=== PATIENT | female | born 1960 | race Two or more races ===

== ENCOUNTER 2024-02-20 01:31 | Inpatient (IN) | payer OTHER ==
[~2024-02-20] VITALS: Ht 167.6 cm; Wt 70.1 kg
[2024-02-20] MEDS: PANTOPRAZOLE 40 MG/10 ML VIAL INJ IV ONE (02:50)
[2024-02-20] MEDS: ONDANSETRON HCL 4 MG/2 ML VIAL IV ONE (02:50)
[2024-02-20 03:11] LABS: Basophils # (auto) 0.1 10 ^3/uL (0-0.2); Basophils % (auto) 0.9 % (0.0-2.0); Eosinophils # (auto) 0 10 ^3/uL (0-0.8); Eosinophils % (auto) 0.5 % (0.0-7.0); Hematocrit 27.7 % (36.0-46.0); Lymphocytes # (auto) 0.9 10 ^3/uL (0.4-5.4); Lymphocytes % (auto) 10.6 % (10.0-50.0); Mean Corpuscular Hemoglobin 19.3 pg (28.0-32.0); Mean Corpuscular Hgb Conc. 28.8 g/dL (32.0-36.0); Mean Corpuscular Volume 66.9 fL (80.0-100.0); Monocytes % (auto) 11.5 % (0.0-12.0); Neutrophils # (auto) 6.6 10 ^3/uL (1.6-8.6); Neutrophils % (auto) 76.5 % (37.0-80.0); Nucleated Red Blood Cells % 0.1 %; Red Blood Cells 4.14 10^6/uL (4.0-5.20); White Blood Cell 8.6 10^3/uL (4.4-10.8)
[2024-02-20 03:17] LABS: Red Cell Distribution Width 24.4 % (11.8-14.3)
[2024-02-20] MEDS: MAALOX PLUS or MAALOX 30 ML PO ONE (03:26)
[2024-02-20] MEDS: DONNATAL 5ml ORAL Elix (BELLADONNA ALK-PHENOBARB) PO ONE (03:26)
[2024-02-20] MEDS: LIDOCAINE VISCOUS 2% 15ML UD PO ONE (03:26)
[2024-02-20] MEDS: METOCLOPRAMIDE HCL 5MG/ml INJ 2ml VIAL IV ONE (03:26)
[2024-02-20 03:30] LABS: Chloride 107 mmol/L (98-107); Potassium 3.4 mmol/L (3.5-5.1); Sodium 143 mmol/L (136-145)
[2024-02-20 03:31] LABS: Anion Gap 21 (5-15); Calcium 7.9 mg/dL (8.5-10.1); Carbon Dioxide 15 mmol/L (20-30)
[2024-02-20 03:36] LABS: BUN/Creatinine Ratio 7.3 (10.0-20.0); Blood Urea Nitrogen 11 mg/dL (9-23); Glucose 91 mg/dL (74-106)
[2024-02-20] MEDS: SODIUM CHLORIDE 0.9% 1,000 ML IV ONE (04:08)
[2024-02-20 05:13] LABS: Hypochromia Marked; Platelet Estimate Adequate; Target Cell MODERATE
[2024-02-20] MEDS: LORazepam 2MG/ML-1ML VIAL ONE (06:28)
[2024-02-20] MEDS: LORazepam 2MG/ML-1ML VIAL IV ONE ×2 (06:34→10:30)
[2024-02-20] MEDS ORDERED: ONDANSETRON HCL 4 MG/2 ML VIAL IV PRN (10:15)
[2024-02-20] MEDS ORDERED: MORPHINE SULFATE INJ 2 MG/ml SYRG IV PRN (10:15)
[2024-02-20] MEDS ORDERED: ACETAMINOPHEN 325 MG TAB PO PRN (10:15)
[2024-02-20] MEDS ORDERED: NITROGLYCERIN 0.4 MG SL TAB SL PRN (10:15)
[2024-02-20] MEDS: ASPirin 81 mg TAB PO ONE (10:34)
[2024-02-20 15:12] LABS: Folate (Folic Acid) 8.71 ng/mL (>5.38)
[2024-02-20 19:35] VITALS: PULSE 78; RESP 15; O2SAT 94
[2024-02-20] MEDS: levETIRAcetam 500 mg/100ml 100 ML IV SCH (22:06)
[2024-02-20 22:27] VITALS: BP 163/83; PULSE 86; RESP 17; TEMP 98; O2SAT 98
[2024-02-20] MEDS ORDERED: SIMV20TA20 PO (22:57)
[2024-02-20] MEDS ORDERED: CYA100I IM (22:57)
[2024-02-20] MEDS ORDERED: QUET1TAB11 PO (22:57)
[2024-02-20] MEDS ORDERED: FLUO40CA PO (22:57)
[2024-02-20] MEDS ORDERED: PANT40TA2 PO (22:57)
[2024-02-20] MEDS ORDERED: TRIA75TA55 PO (22:57)
[2024-02-20] MEDS ORDERED: POTA8TAB38 PO (22:57)
[2024-02-20] MEDS ORDERED: ESCI5TAB PO (22:57)
[2024-02-20] MEDS ORDERED: BUPR300T28 PO (22:57)
[2024-02-20] MEDS ORDERED: ACET-1304 PO (22:57)
[2024-02-21] VITALS (8 sets, daily range): BP systolic 138–164; BP diastolic 70–89; PULSE 75–121; RESP 16–20; TEMP 98.1–99.9; O2SAT 95–100
[2024-02-21] MEDS ORDERED: LORazepam 2MG/ML-1ML VIAL IV PRN (00:45)
[2024-02-21] MEDS: ASPirin 81 mg TAB PO SCH (08:26)
[2024-02-21] MEDS: PANTOPRAZOLE 40 MG TAB PO SCH (08:26)
[2024-02-21 12:05] LABS: Chloride 100 mmol/L (98-107); Potassium 2.9 mmol/L (3.5-5.1); Sodium 137 mmol/L (136-145)
[2024-02-21 12:06] LABS: Anion Gap 12 (5-15); Calcium 7.6 mg/dL (8.5-10.1); Carbon Dioxide 25 mmol/L (20-30)
[2024-02-21 12:12] LABS: BUN/Creatinine Ratio 5.5 (10.0-20.0); Blood Urea Nitrogen 6 mg/dL (9-23)
[2024-02-21 12:18] LABS: Glucose 39 mg/dL (74-106)
[2024-02-21] MEDS: POTASSIUM CHL 20 Meq TABLET PO ONE (13:42)
[2024-02-21] MEDS: amLODIPine BESYLATE 5 MG TAB PO ONE (13:43)
[2024-02-21] MEDS: SODIUM CHLORIDE 0.9% 1,000 ML IV SCH (13:55)
[2024-02-21] MEDS ORDERED: SOD CHL 0.9%/ KCL 20MEQ 1,000 ML IV SCH (16:15)
[2024-02-21] MEDS: NICOTINE 7MG/24HR TOPICAL PATCH TD ONE (17:26)
[2024-02-21] MEDS: CITALOPRAM HYDROBR 20 MG TAB PO ONE (17:26)
[2024-02-21] MEDS: D5 IV SCH (18:45)
[2024-02-21] MEDS: POTASSIUM CHLORIDE IV SCH (18:45)
[2024-02-21] MEDS: SOD CHLO IV SCH (18:45)
[2024-02-21 19:02] LABS: Phosphorus 2.1 mg/dL (2.4-5.1)
[2024-02-21 19:21] LABS: Magnesium 0.5 mg/dL (1.6-2.6)
[2024-02-21 22:14] LABS: % Iron Saturation 9.5 % (15-50)
[2024-02-22] VITALS (8 sets, daily range): BP systolic 125–145; BP diastolic 68–78; PULSE 60–111; RESP 16–21; TEMP 97.9–99; O2SAT 95–100
[2024-02-22 07:03] LABS: Eosinophils # (auto) 0.1 10 ^3/uL (0-0.8); Nucleated Red Blood Cells % 0.1 %
[2024-02-22 07:14] LABS: Chloride 101 mmol/L (98-107); Potassium 3.1 mmol/L (3.5-5.1); Sodium 136 mmol/L (136-145)
[2024-02-22 07:15] LABS: Anion Gap 10 (5-15); Calcium 7.6 mg/dL (8.5-10.1); Carbon Dioxide 25 mmol/L (20-30)
[2024-02-22 07:20] LABS: BUN/Creatinine Ratio 8.3 (10.0-20.0); Blood Urea Nitrogen 13 mg/dL (9-23); Glucose 88 mg/dL (74-106)
[2024-02-22 07:22] LABS: Basophils # (auto) 0 10 ^3/uL (0-0.2); Basophils % (auto) 0.1 % (0.0-2.0); Eosinophils % (auto) 0.9 % (0.0-7.0); Hematocrit 23.1 % (36.0-46.0); Hemoglobin 7.1 g/dL (12.2-16.2); Lymphocytes # (auto) 0.3 10 ^3/uL (0.4-5.4); Lymphocytes % (auto) 4.3 % (10.0-50.0); Mean Corpuscular Hemoglobin 19.7 pg (28.0-32.0); Mean Corpuscular Hgb Conc. 30.6 g/dL (32.0-36.0); Mean Corpuscular Volume 64.3 fL (80.0-100.0); Monocytes # (auto) 1.1 10 ^3/uL (0-1.3); Monocytes % (auto) 13.8 % (0.0-12.0); Neutrophils # (auto) 6.4 10 ^3/uL (1.6-8.6); Neutrophils % (auto) 80.9 % (37.0-80.0); Red Blood Cells 3.59 10^6/uL (4.0-5.20); White Blood Cell 7.9 10^3/uL (4.4-10.8)
[2024-02-22 07:24] LABS: Red Cell Distribution Width 23.7 % (11.8-14.3)
[2024-02-22] MEDS: PATIENTS OWN MEDICATION (Bupropion Hcl (Bupropion Hcl Xl) 300 MG) PO SCH (08:58)
[2024-02-22] MEDS: amLODIPine BESYLATE 5 MG TAB PO SCH (08:59)
[2024-02-22] MEDS: QUEtiapine FUMARATE 25 MG TAB PO SCH (09:00)
[2024-02-22] MEDS: POTASSIUM CHL 20 Meq TABLET PO ONE (09:00)
[2024-02-22] MEDS: CITALOPRAM HYDROBR 20 MG TAB PO SCH (09:00)
[2024-02-22] MEDS: NICOTINE 7MG/24HR TOPICAL PATCH TD SCH (09:01)
[2024-02-22] MEDS ORDERED: PATIENTS OWN MEDICATION (Escitalopram Oxalate (Lexapro) 1 TAB) PO SCH (10:00)
[2024-02-22] MEDS: POTASSIUM PHOSPHATE 44 MEQ in D5W 5% 250 ML IV ONE (16:48)
[2024-02-22] MEDS: ERGOCALCIFEROL 50,000 UNIT(1.25MG) CAP PO SCH (16:53)
[2024-02-22] MEDS: MAGNESIUM SULFATE 1GM/100ML 100 ML IV SCH (16:56)
[2024-02-23] VITALS (12 sets, daily range): BP systolic 123–155; BP diastolic 58–88; PULSE 83–105; RESP 16–18; TEMP 97.4–99; O2SAT 95–100
[2024-02-23 00:35] LABS: Urine Bacteria FEW /hpf (None Seen); Urine Blood Negative /uL (Negative); Urine Clarity Clear (Clear); Urine Color Straw (Yellow); Urine Protein, UAD Negative (Negative); Urine Specific Gravity 1.004 (1.001-1.035); Urine Urobilinogen Normal (Negative); Urine WBC <1 /hpf (0 - 5); Urine pH 6.5 (5.0-9.0)
[2024-02-23 01:57] LABS: Protein, Urine 10.2 mg/dL (0.0-11.9)
[2024-02-23 02:00] LABS: Creatinine, Urine 23.83 mg/dL (30.0-125.0); Urine Protein/Creatinine Ratio 0.43
[2024-02-23 06:37] LABS: Hematocrit 22.2 % (36.0-46.0); Mean Corpuscular Hemoglobin 19.3 pg (28.0-32.0); Red Blood Cells 3.43 10^6/uL (4.0-5.20)
[2024-02-23 06:40] LABS: Mean Corpuscular Hgb Conc. 29.7 g/dL (32.0-36.0); Mean Corpuscular Volume 64.8 fL (80.0-100.0); White Blood Cell 5.9 10^3/uL (4.4-10.8)
[2024-02-23 06:41] LABS: Anion Gap 9 (5-15); Carbon Dioxide 22 mmol/L (20-30); Chloride 106 mmol/L (98-107); Potassium 3.9 mmol/L (3.5-5.1); Sodium 137 mmol/L (136-145)
[2024-02-23 06:42] LABS: Calcium 7.8 mg/dL (8.5-10.1)
[2024-02-23 06:47] LABS: BUN/Creatinine Ratio 9.2 (10.0-20.0); Blood Urea Nitrogen 11 mg/dL (9-23); Glucose 80 mg/dL (74-106); Magnesium 1.1 mg/dL (1.6-2.6)
[2024-02-23 06:49] LABS: Red Cell Distribution Width 24.1 % (11.8-14.3)
[2024-02-23 06:52] LABS: Hemoglobin 6.6 g/dL (12.2-16.2)
[2024-02-23 06:53] LABS: Band Neutrophils % (manual) 0; Basophils % (manual) 0 (0.0-2.0); Blast Cells 0; Metamyelocytes % 0; Myelocytes % 0; Promyelocytes % 0; Reactive Lymphocytes 0
[2024-02-23 08:07] LABS: Eosinophils % (manual) 1 (0-7); Hypochromia Marked; Lymphocytes % (manual) 11 (10.0-50.0); Monocytes % (manual) 13 (0-12); Platelet Estimate Adequate
[2024-02-23 08:08] LABS: Anisocytosis Slight
[2024-02-23 09:07] LABS: Hepatitis B Surface Antigen Negative (Negative)
[2024-02-23 09:28] LABS: Hepatitis C Antibody Negative (Negative)
[2024-02-23] MEDS: MAGNESIUM OXIDE 400 MG TAB PO SCH (11:12)
[2024-02-23] MEDS: MAGNESIUM SULFATE 1GM/100ML 100 ML IV SCH (11:18)
[2024-02-24] VITALS (8 sets, daily range): BP systolic 147–160; BP diastolic 68–91; PULSE 79–100; RESP 16–18; TEMP 97.1–98.5; O2SAT 96–100
[2024-02-24 07:02] LABS: Anion Gap 10 (5-15); Carbon Dioxide 23 mmol/L (20-30); Chloride 103 mmol/L (98-107); Potassium 3.8 mmol/L (3.5-5.1); Sodium 136 mmol/L (136-145)
[2024-02-24 07:03] LABS: Calcium 8.7 mg/dL (8.5-10.1)
[2024-02-24 07:04] LABS: Hemoglobin 8.5 g/dL (12.2-16.2); White Blood Cell 5.6 10^3/uL (4.4-10.8)
[2024-02-24 07:06] LABS: Hematocrit 27.6 % (36.0-46.0); Mean Corpuscular Hemoglobin 20.9 pg (28.0-32.0); Mean Corpuscular Hgb Conc. 30.7 g/dL (32.0-36.0); Mean Corpuscular Volume 67.8 fL (80.0-100.0); Red Blood Cells 4.07 10^6/uL (4.0-5.20)
[2024-02-24 07:07] LABS: Red Cell Distribution Width 26.9 % (11.8-14.3)
[2024-02-24 07:08] LABS: BUN/Creatinine Ratio 6.7 (10.0-20.0); Blood Urea Nitrogen 7 mg/dL (9-23); Glucose 73 mg/dL (74-106)
[2024-02-24 07:09] LABS: Band Neutrophils % (manual) 0; Basophils % (manual) 0 (0.0-2.0); Blast Cells 0; Magnesium 1.6 mg/dL (1.6-2.6); Metamyelocytes % 0; Myelocytes % 0; Promyelocytes % 0; Reactive Lymphocytes 0
[2024-02-24 07:33] LABS: Anisocytosis Slight; Eosinophils % (manual) 2 (0-7); Hypochromia Moderate; Lymphocytes % (manual) 11 (10.0-50.0); Monocytes % (manual) 15 (0-12); Platelet Estimate Adequate
[2024-02-25] VITALS (8 sets, daily range): BP systolic 125–170; BP diastolic 66–103; PULSE 70–102; RESP 16–20; TEMP 97.8–98.7; O2SAT 95–98
[2024-02-25 06:11] LABS: Chloride 105 mmol/L (98-107); Potassium 3.7 mmol/L (3.5-5.1); Sodium 136 mmol/L (136-145)
[2024-02-25 06:12] LABS: Anion Gap 9 (5-15); Carbon Dioxide 22 mmol/L (20-30)
[2024-02-25 06:13] LABS: Calcium 9.1 mg/dL (8.7-10.4)
[2024-02-25 06:17] LABS: Glucose 78 mg/dL (74-106)
[2024-02-25 06:18] LABS: Blood Urea Nitrogen 7 mg/dL (9-23); Magnesium 1.4 mg/dL (1.6-2.6)
[2024-02-25 06:40] LABS: Hemoglobin 8.5 g/dL (12.2-16.2)
[2024-02-25 06:45] LABS: Hematocrit 27.7 % (36.0-46.0); Mean Corpuscular Hgb Conc. 30.8 g/dL (32.0-36.0); Mean Corpuscular Volume 68.4 fL (80.0-100.0); Red Blood Cells 4.06 10^6/uL (4.0-5.20); White Blood Cell 4.7 10^3/uL (4.4-10.8)
[2024-02-25 06:54] LABS: Red Cell Distribution Width 26.8 % (11.8-14.3)
[2024-02-25 06:56] LABS: Band Neutrophils % (manual) 0; Basophils % (manual) 0 (0.0-2.0); Blast Cells 0; Metamyelocytes % 0; Myelocytes % 0; Promyelocytes % 0; Reactive Lymphocytes 0
[2024-02-25 08:47] LABS: Eosinophils % (manual) 2 (0-7); Lymphocytes % (manual) 17 (10.0-50.0); Monocytes % (manual) 8 (0-12)
[2024-02-25 08:48] LABS: Anisocytosis Slight; Hypochromia Moderate
[2024-02-25 08:49] LABS: Platelet Estimate Adequate
[2024-02-25] MEDS: METOPROLOL TARTRATE 25 MG TAB PO SCH (10:27)
[2024-02-25] MEDS ORDERED: MAGNESIUM SULFATE 1GM/100ML 100 ML IV SCH (13:00)
[2024-02-26] VITALS (8 sets, daily range): BP systolic 109–164; BP diastolic 54–86; PULSE 61–79; RESP 16–20; TEMP 98–98.6; O2SAT 96–98
[2024-02-26 06:24] LABS: Chloride 104 mmol/L (98-107); Sodium 136 mmol/L (136-145)
[2024-02-26 06:25] LABS: Anion Gap 9 (5-15); Carbon Dioxide 23 mmol/L (20-30)
[2024-02-26 06:30] LABS: Glucose 77 mg/dL (74-106)
[2024-02-26 06:31] LABS: BUN/Creatinine Ratio 8.5 (10.0-20.0); Blood Urea Nitrogen 10 mg/dL (9-23); Magnesium 1.3 mg/dL (1.6-2.6)
[2024-02-26 06:50] LABS: Eosinophils # (auto) 0.1 10 ^3/uL (0-0.8); Hemoglobin 8.7 g/dL (12.2-16.2); Mean Corpuscular Hgb Conc. 30.2 g/dL (32.0-36.0); Monocytes # (auto) 0.6 10 ^3/uL (0-1.3); Neutrophils # (auto) 2.1 10 ^3/uL (1.6-8.6); Nucleated Red Blood Cells % 0.1 %; Red Blood Cells 4.25 10^6/uL (4.0-5.20); White Blood Cell 5.8 10^3/uL (4.4-10.8)
[2024-02-26 06:52] LABS: Basophils # (auto) 0 10 ^3/uL (0-0.2); Basophils % (auto) 0.7 % (0.0-2.0); Eosinophils % (auto) 1.6 % (0.0-7.0); Hematocrit 28.9 % (36.0-46.0); Lymphocytes % (auto) 52.1 % (10.0-50.0); Mean Corpuscular Hemoglobin 20.5 pg (28.0-32.0); Mean Corpuscular Volume 68.1 fL (80.0-100.0); Monocytes % (auto) 9.8 % (0.0-12.0); Neutrophils % (auto) 35.8 % (37.0-80.0)
[2024-02-26 06:56] LABS: Red Cell Distribution Width 26.9 % (11.8-14.3)
[2024-02-26 07:12] LABS: Anisocytosis Slight; Hypochromia Moderate; Platelet Estimate Adequate
[2024-02-26 07:13] LABS: Stomatocytes Few
[2024-02-26 07:15] LABS: Target Cell FEW
[2024-02-27] VITALS (9 sets, daily range): BP systolic 104–149; BP diastolic 64–85; PULSE 60–85; RESP 14–18; TEMP 97.2–98.8; O2SAT 97–98
[2024-02-27 11:49] LABS: Basophils # (auto) 0.1 10 ^3/uL (0-0.2); Neutrophils % (auto) 74.1 % (37.0-80.0)
[2024-02-27 11:51] LABS: Basophils % (auto) 0.9 % (0.0-2.0); Eosinophils # (auto) 0.2 10 ^3/uL (0-0.8); Eosinophils % (auto) 2.7 % (0.0-7.0); Hematocrit 29.1 % (36.0-46.0); Hemoglobin 8.7 g/dL (12.2-16.2); Lymphocytes # (auto) 0.5 10 ^3/uL (0.4-5.4); Lymphocytes % (auto) 8.1 % (10.0-50.0); Mean Corpuscular Hemoglobin 20.6 pg (28.0-32.0); Mean Corpuscular Volume 68.6 fL (80.0-100.0); Monocytes # (auto) 0.8 10 ^3/uL (0-1.3); Monocytes % (auto) 14.2 % (0.0-12.0); Neutrophils # (auto) 4.3 10 ^3/uL (1.6-8.6); Red Blood Cells 4.24 10^6/uL (4.0-5.20); White Blood Cell 5.8 10^3/uL (4.4-10.8)
[2024-02-27 12:00] LABS: Red Cell Distribution Width 27.2 % (11.8-14.3)
[2024-02-27 12:21] LABS: Anion Gap 7 (5-15); Calcium 9.9 mg/dL (8.5-10.1); Carbon Dioxide 25 mmol/L (20-30); Chloride 102 mmol/L (98-107); Potassium 3.9 mmol/L (3.5-5.1); Sodium 134 mmol/L (136-145)
[2024-02-27 12:27] LABS: BUN/Creatinine Ratio 11.2 (10.0-20.0); Blood Urea Nitrogen 14 mg/dL (9-23); Glucose 97 mg/dL (74-106)
[2024-02-27 12:28] LABS: Magnesium 1.3 mg/dL (1.6-2.6)
[2024-02-27 12:39] LABS: Hypochromia Moderate; Platelet Estimate Adequate
[2024-02-27 12:40] LABS: Anisocytosis Slight; Stomatocytes Few; Target Cell FEW
[2024-02-27] MEDS: MAGNESIUM OXIDE 400 MG TAB PO ONE (16:50)
[2024-02-27] MEDS: MAGNESIUM SULFATE 1GM/100ML 100 ML IV SCH (18:13)
[2024-02-28 01:00] VITALS: BP 142/55; PULSE 69; RESP 18; TEMP 98.7; O2SAT 94
[2024-02-28 05:00] VITALS: BP 149/73; PULSE 71; RESP 16; TEMP 98.2; O2SAT 100
[2024-02-28 06:36] LABS: Basophils # (auto) 0.1 10 ^3/uL (0-0.2); Basophils % (auto) 1.2 % (0.0-2.0); Eosinophils # (auto) 0.1 10 ^3/uL (0-0.8); Mean Corpuscular Volume 67.8 fL (80.0-100.0); Monocytes # (auto) 0.4 10 ^3/uL (0-1.3); White Blood Cell 5.3 10^3/uL (4.4-10.8)
[2024-02-28 06:37] LABS: Eosinophils % (auto) 1.9 % (0.0-7.0); Hematocrit 29.3 % (36.0-46.0); Hemoglobin 8.8 g/dL (12.2-16.2); Lymphocytes # (auto) 2.8 10 ^3/uL (0.4-5.4); Lymphocytes % (auto) 52.1 % (10.0-50.0); Mean Corpuscular Hemoglobin 20.4 pg (28.0-32.0); Mean Corpuscular Hgb Conc. 30.1 g/dL (32.0-36.0); Monocytes % (auto) 7.8 % (0.0-12.0); Red Blood Cells 4.33 10^6/uL (4.0-5.20); Red Cell Distribution Width 26.6 % (11.8-14.3)
[2024-02-28 06:42] LABS: Chloride 103 mmol/L (98-107); Potassium 3.9 mmol/L (3.5-5.1); Sodium 136 mmol/L (136-145)
[2024-02-28 06:43] LABS: Anion Gap 8 (5-15); Calcium 9.5 mg/dL (8.7-10.4); Carbon Dioxide 25 mmol/L (20-30)
[2024-02-28 06:48] LABS: BUN/Creatinine Ratio 10.9 (10.0-20.0); Blood Urea Nitrogen 13 mg/dL (9-23); Glucose 84 mg/dL (74-106)
[2024-02-28 09:00] VITALS: BP 150/84; PULSE 69; RESP 18; TEMP 98; O2SAT 99
== END 2024-02-28 10:54 | disposition home health service (06) | DRG 101 ==
LOC: EDBD 01:31 → ER 01:31 → TELE-EAST 10:11 → TELE 10:11 → TELE-EAST 22:35
PROVIDERS: ADMIT Internal Medicine Geriatric Medicine; ATTEND Internal Medicine Geriatric Medicine
PROC: 30233N1 Transfusion of Nonautologous Red Blood Cells into Peripheral Vein, Percutaneous Approach (ICD-10-PCS; principal; 2024-02-23)
DX: G40.409 Other generalized epilepsy and epileptic syndromes, not intractable, without status epilepticus (principal); E87.20 Acidosis, unspecified; F05 Delirium due to known physiological condition; I47.10 Supraventricular tachycardia, unspecified; K92.2 Gastrointestinal hemorrhage, unspecified; N17.9 Acute kidney failure, unspecified; E78.5 Hyperlipidemia, unspecified; F43.10 Post-traumatic stress disorder, unspecified; G47.00 Insomnia, unspecified; I10 Essential (primary) hypertension; K44.9 Diaphragmatic hernia without obstruction or gangrene; D50.9 Iron deficiency anemia, unspecified; E16.2 Hypoglycemia, unspecified; E86.0 Dehydration; E87.6 Hypokalemia; K64.9 Unspecified hemorrhoids; K21.9 Gastro-esophageal reflux disease without esophagitis; E83.42 Hypomagnesemia; E83.39 Other disorders of phosphorus metabolism; Z82.49 Family history of ischemic heart disease and other diseases of the circulatory system; Z79.899 Other long term (current) drug therapy
CPT/HCPCS: 36415; 70450; 70551; 74176; 76775; 80048; 81001; 82306; 82550; 82570; 82607; 82728; 82746; 83540; 83550; 83690; 83735; 83970; 84100; 84156; 84300; 84443; 85007; 85025; 85027; 86803; 86850; 86900; 86901; 86920; 87340; 93306; 93886; 95819; 97110; 97116; 97163; 97530; C9113; G0378; J2405; J7042; J7060